=== PATIENT | male | born 1950 | race Caucasian/White ===

== ENCOUNTER 2017-04-23 07:13 | Emergency (ER) | payer OTHER ==
[~2017-04-23] VITALS: Ht 180.3 cm; Wt 102.3 kg
[2017-04-23] MEDS ORDERED: ENALAPRIL MALEA20 MG PO (07:46)
[2017-04-23] MEDS ORDERED: NORVASC10 MG PO (07:46)
[2017-04-23] MEDS ORDERED: ASPIR 8181 M1 PO (07:47)
[2017-04-23] MEDS ORDERED: LEVO-T88 MCG PO (07:47)
[2017-04-23] MEDS ORDERED: LEVEMIR100 UNIT/2 SC (07:47)
[2017-04-23] MEDS ORDERED: ZOCOR40 MG PO (07:48)
[2017-04-23] MEDS ORDERED: ONE DAILY TABL1 EAC1 PO (07:48)
[2017-04-23] MEDS ORDERED: METFORMIN HCL1000 MG PO (07:48)
[2017-04-23] MEDS ORDERED: METOPROLOL TART25 MG PO (07:49)
[2017-04-23 07:56] LABS: BASOPHIL COUNT 0.1 K/uL (0-0.1); EOSINOPHIL (%) 3.2 % (0-5); EOSINOPHIL COUNT 0.2 K/uL (0-0.3); HEMATOCRIT 44.5 % (38.0-50.0); IMMATURE GRANULOCYTE (%) 0.7 % (0.0-0.7); IMMATURE GRANULOCYTE COUNT 0.1 K/uL; INSTRUMENT ABS NEUTROPHIL CT 3.5 K/uL; LYMPHOCYTE COUNT 2.9 K/uL (1.0-2.8); MCH 30.3 PG (29.0-34.0); MCHC 35.5 G/DL (30.0-36.0); MCV 85.2 FL (86-99); MONOCYTE (%) 9.1 % (3-12); MONOCYTE COUNT 0.7 K/uL (0-0.8); NEUTROPHIL (%) 47.5 % (45-76); NEUTROPHIL COUNT 3.5 K/uL (1.8-6.4); PLATELET COUNT 244 K/uL (156-360); RBC DIS.WIDTH-CV 12.4 % (11.8-14.6); RBC DIS.WIDTH-SD 38.1 % (39-53); RED BLOOD COUNT 5.22 M/uL (4.00-5.50); WHITE BLOOD COUNT 7.5 K/uL (4.1-10.2)
[2017-04-23 08:50] LABS: ANION GAP 15 MEQ/L (2-14); CHLORIDE 106 MEQ/L (99-109); GFR ESTIMATE (CALCULATED) > 59 mL/min/; GLUCOSE 191 mg/dL (70-99); POTASSIUM 3.6 MEQ/L (3.7-5.4); SAMPLE HEMOLYSIS CHECK 0; SAMPLE ICTERIC CHECK 0; SAMPLE LIPEMIA CHECK 0; SODIUM 141 MEQ/L (136-147); UREA NITROGEN (BUN) 13 mg/dL (9-23)
[2017-04-23] MEDS ORDERED: MOTRIN800 MG PO (09:44)
[2017-04-23 10:02] VITALS: BP 134/74
== END 2017-04-23 10:07 ==
LOC: EME 07:13
PROVIDERS: Emergency Medicine
PROC: 3E0234Z Introduction of Serum, Toxoid and Vaccine into Muscle, Percutaneous Approach (ICD-10-PCS; principal; 2017-04-23)
DX: S01.111A Laceration without foreign body of right eyelid and periocular area, initial encounter (principal); S00.31XA Abrasion of nose, initial encounter; S02.2XXA Fracture of nasal bones, initial encounter for closed fracture; S00.83XA Contusion of other part of head, initial encounter; S09.8XXA Other specified injuries of head, initial encounter; W19.XXXA Unspecified fall, initial encounter; Y92.149 Unspecified place in prison as the place of occurrence of the external cause; Z23 Encounter for immunization; I10 Essential (primary) hypertension; E11.9 Type 2 diabetes mellitus without complications; Z79.4 Long term (current) use of insulin
CPT/HCPCS: 70450; 70486; 80048; 85025; 93005; 99281; 99284